=== PATIENT | male | born 1990 | race Caucasian/White ===

== ENCOUNTER 2020-07-15 19:51 | Emergency (ER) | payer BC, MEDICAID ==
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
[2020-07-16 01:16] VITALS: BP 137/82
[2020-07-16] MEDS ORDERED: oxyCODONE 5 MG TABLET PO STA (01:24)
--- NOTE | 2020-07-16 09:44 | XRAY Report ---
PROCEDURE: Elbow 3 View LT INDICATIONS: injury, pain, tenderness TECHNIQUE: 3 views of the elbow were acquired. COMPARISON: None FINDINGS: Bones: There is a nondisplaced proximal radial head fracture. No suspicious bony lesions. Soft tissues: Mild elbow joint effusion. No suspicious soft tissue calcifications. IMPRESSION: Nondisplaced proximal radial head fracture. The above findings are concordant with preliminary report. Reviewed by: Sepideh Casillas MD on 07/16/2020 9:43 AM [facility] Approved by: Sepideh Casillas MD on 07/16/2020 9:43 AM PST Station ID: [id number]
== END 2020-07-16 01:38 | disposition home or self-care (01) ==
LOC: ED 19:51
DX: S52.125A Nondisplaced fracture of head of left radius, initial encounter for closed fracture (principal); W18.30XA Fall on same level, unspecified, initial encounter; Y93.51 Activity, roller skating (inline) and skateboarding; Y92.410 Unspecified street and highway as the place of occurrence of the external cause
CPT/HCPCS: 29105; 73080; 99283; A9270

== ENCOUNTER 2020-07-31 18:06 | Outpatient (CLI) | payer MEDICAID ==
--- NOTE | 2020-07-31 17:10 | XRAY Report ---
PROCEDURE: Elbow 3 View LT INDICATIONS: NONDISPLACED FX OF HEAD OF LEFT RADIUS TECHNIQUE: 3 views of the elbow were acquired. COMPARISON: 07/16/2020. FINDINGS: Bones: Nondisplaced radial head fracture is less conspicuous compared to prior examination compatible with some healing. Radial head fracture is healing in anatomic alignment. Soft tissues: No elbow joint effusion. No suspicious soft tissue calcifications. IMPRESSION: Healing radial head fracture. Reviewed by: Laina Lucas MD, PhD on 07/31/2020 5:09 PM PST Approved by: Laina Lucas MD, PhD on 07/31/2020 5:09 PM PST Station ID: [id number]
== END 2020-07-31 23:59 | disposition home or self-care (01) ==
LOC: DI.N 18:06
PROVIDERS: ATTEND Physician Assistant
DX: S52.125A Nondisplaced fracture of head of left radius, initial encounter for closed fracture (principal)

== ENCOUNTER 2020-08-27 10:30 | Outpatient (CLI) | payer MEDICAID ==
[2020-08-27 11:18] VITALS: BP 107/69
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
== END 2020-08-27 10:31 | disposition home or self-care (01) ==
LOC: SC 10:30
PROVIDERS: ATTEND Nurse Practitioner Family
DX: G47.10 Hypersomnia, unspecified (principal); G47.8 Other sleep disorders; R41.89 Other symptoms and signs involving cognitive functions and awareness; F17.210 Nicotine dependence, cigarettes, uncomplicated; R06.83 Snoring; E66.9 Obesity, unspecified; Z68.39 Body mass index [BMI] 39.0-39.9, adult
CPT/HCPCS: 99203; 99212

== ENCOUNTER 2020-10-19 13:32 | Outpatient (CLI) | payer MEDICAID | END 2020-10-19 13:33 | disposition home or self-care (01) | LOC: SC 13:32 | PROVIDERS: ATTEND Nurse Practitioner Family | DX: R09.02 Hypoxemia (principal); G47.10 Hypersomnia, unspecified; R53.83 Other fatigue; G47.8 Other sleep disorders; R06.83 Snoring; E66.9 Obesity, unspecified; Z68.39 Body mass index [BMI] 39.0-39.9, adult | CPT/HCPCS: 95806 ==

== ENCOUNTER 2020-10-27 16:52 | Outpatient (CLI) | payer MEDICAID ==
--- NOTE | 2020-10-27 17:15 | SLEEP CARE CONSULTATION ---
Information from patient questionnaire entered by Manuel Fernando. I have reviewed and concur with the information entered by Manuel Fernando. This document represents the service I personally performed and the decisions made by , Aniyah Olivo ARNP. History of Present Illness Service Date and Time: 10/27/20201651 Initial [place] Sleepiness Scale score: 10 (in 2020) Current [place] Sleepiness Scale score: 14 Additional HPI information: ALLI ROCHA returns for follow up and results of the recently performed home sleep study. The patient was informed of the following findings: no significant sleep disordered breathing with an average AHI of 3.1, bobbi oxygen saturation of 88% and supine AHI minimally elevated at 5.1. I explained the pathophysiology behind obstructive sleep apnea. Patient does not have sleep apnea and was advised how weight gain could increase the risk of developing sleep apnea in the future. I strongly encouraged the patient to lose weight. Patient does not have significant sleep disordered breathing but has elevated AHI in supine position so advised positional therapy. Methods to achieve positional management therapy were discussed; such as, positioning with pillows. Patient has moderate snoring. Snoring can be reduced by weight loss. Weight loss is best achieved with diet consult. Patient instructed to contact PCP for referral. Snoring can also be treated with an oral appliance from a dentist. Advised to check insurance coverage. In addition, an ENT evaluation can be do to see if other treatment is indicated. Patient counseled not drink alcohol less than 4 hours before bedtime as it can increase snoring and apnea. Patient was cautioned about risks of drowsy driving until sleepiness symptoms resolve. Sleep Study - Results Type of Sleep Study: Home sleep study Prior sleep studies: No Polysomnography/Home Sleep Study results: Physician Impression: The quality of the study is good. The length of the study is adequate (> 240 minutes). Please also see the tabulated and graphic data. 1. No significant sleep disordered breathing, with an AHI of 3.1/hr and bobbi SaO2 of 88%. During the study, the patient had 10 apneas (10 obstructive, 0 central, 0 mixed) and 11 hypopneas. The longest episode lasted 46.0 seconds. The few respiratory events occurred almost exclusively during supine sleep (supine AHI was 5.1 and non-supine, 2.15). 2. Hypoxemia (ICD-10 R09.02), minimal, with the lowest oxygen saturation of 88 % and 1.0 minutes with SaO2 under 90%. Baseline oxygen saturation was normal (Average oxygen saturation was 93%). Allergies and Home Medications Home medication list reviewed: Yes (no new meds) Review of Systems Review of systems same as previous: Yes (no changes) Physical Exam Heart Rate: 107 O2 Saturation: 97 Height: 5 ft 8 in Weight: 252 lb Body Mass Index: 38.2 BMI Classification: Obese Impression and Plan Snoring but no significant sleep disordered breathing. Patient advised that often weight loss will reduce snoring as well as apnea risk. An oral appliance can also be used for snoring. This would require a dental consultation. Patient cautioned not to use other online appliances as can cause bite issues. A list of accredited dentists in [facility] and one local dentist who makes oral appliances is available in office. Patient is advised to check if insurance will cover. An ENT consult can also be helpful to determine if any other treatment is an option. * Attempt to lose weight * Avoid alcohol consumption near bedtime * The patient is cautioned about driving until sleepiness is completely resolved. * Return as needed for follow up. Counseling Topics: Sleeping position, Weight loss health impact Visit Type: In Office Time Spent with Patient (minutes): 13 Provider Statement: I spent 100% of the Face to Face Visit with the patient with greater than 50% spent counseling the patient and coordination of care.
== END 2020-10-27 16:53 | disposition home or self-care (01) ==
LOC: SC 16:52
PROVIDERS: ATTEND Nurse Practitioner Family
DX: R06.83 Snoring (principal); E66.9 Obesity, unspecified; Z68.38 Body mass index [BMI] 38.0-38.9, adult
CPT/HCPCS: 99212

== ENCOUNTER 2021-11-17 07:57 | Outpatient (CLI) | payer MEDICAID ==
--- NOTE | 2021-11-17 10:46 | Ultrasound Report ---
PROCEDURE: Abdomen Complete INDICATIONS: ABD PAIN TECHNIQUE: Real-time scanning was performed of the abdominal and retroperitoneal organs, with image documentatio n. COMPARISON: None. FINDINGS: Liver: Liver is normal in size and homogeneous in echotexture. Liver is echogenic. Gallbladder: Gallbladder is sonographically normal. No gallstones. Gallbladder wall measures 1.5 mm. No pericholecystic fluid. Biliary ducts: Intrahepatic bile ducts are non-dilated. Extrahepatic bile duct caliber measures 2.7 mm. Normal is 6-7 mm or less in diameter, or 10 mm or less post-cholecystectomy. Pancreas: Visualized portions of the pancreas are sonographically normal. Bony detail the pancreas a re obscured by bowel gas and cannot be evaluated. Spleen: Spleen is normal in size and homogeneous in echotexture. Kidneys: Kidneys are normal in size and echotexture. Right kidney measures 11.6 cm long; left kidne y measures 12.2 cm long. No hydronephrosis or nephrolithiasis. No solid masses. Aorta: Visualized aorta is normal in caliber at less than 3 cm. Iliacs: Obscured by bowel gas and cannot be evaluated. IVC: Intrahepatic inferior vena cava is patent. Miscellaneous: No free abdominal fluid. IMPRESSION: No sonographic evidence of cholelithiasis or cholecystitis. Echogenic liver. Finding typically represents fatty infiltration, however finding is nonspecific and other etiologies including hepatic cirrhosis can produce a similar appearance. Recommend correlation with clinical and laboratory data. Reviewed by: Laina Lucas MD, PhD on 11/17/2021 10:44 AM PDT Approved by: Laina Lucas MD, PhD on 11/17/2021 10:44 AM PDT Station ID: [id number]
== END 2021-11-17 07:58 | disposition home or self-care (01) ==
LOC: DI 07:57
PROVIDERS: ATTEND Family Medicine
DX: R10.9 Unspecified abdominal pain (principal); R11.2 Nausea with vomiting, unspecified; R93.2 Abnormal findings on diagnostic imaging of liver and biliary tract

== ENCOUNTER 2021-11-18 09:05 | Day surgery (SDC) | payer MEDICAID ==
--- NOTE | 2021-11-18 09:29 | ED Physician Documentation ---
PD HPI ABD PAIN - Stated complaint Stated Complaint: ABD PX - Chief complaint Chief Complaint: Abd Pain - Additional information Additional information: Patient is 31-year-old male presenting to the emergency department with right lower quadrant abdominal pain. Reports cramping right lower quadrant abdominal pain with associated nausea. States has had intermittent episodes of pain for several months however this morning had a severe episode of pain. Has followed up with primary care and had ultrasonography of his gallbladder which was negative yesterday however there was some steatosis noted with recommendation for correlation with labs. Currently reports that pain is improving. Denies previous abdominal surgeries. Endorses for some nausea and diarrhea at home. Also reports is a daily marijuana user. Review of Systems Ten Systems: 10 systems reviewed and negative GI: reports: Abdominal Pain, Nausea, Vomiting, Diarrhea PD PAST MEDICAL HISTORY - Past Medical History Psych: Depression, Anxiety - Past Surgical History Past Surgical History: No - Present Medications Home Medications: Ambulatory Orders Medication Instructions Recorded Confirmed Sertraline [Zoloft] 100 mg PO DAILY 03/07/13 07/16/20 Albuterol Sulfate [Proair 2 puffs IH Q4HR PRN 07/16/20 07/16/20 Respiclick] Oxycodone HCl 10 mg PO Q6HR PRN #14 tablet 07/16/20 Quetiapine Fumarate [Seroquel] 100 mg PO DAILY 07/16/20 07/16/20 buPROPion HCL [Bupropion HCl Sr] 150 mg PO DAILY 07/16/20 07/16/20 buPROPion HCL [Bupropion Xl] 300 mg PO DAILY 07/16/20 07/16/20 clonazePAM [Clonazepam] 1 mg PO BID 07/16/20 07/16/20 lamoTRIgine [Lamictal] 200 mg PO DAILY 07/16/20 07/16/20 - Allergies Allergies/Adverse Reactions: Allergies Allergy/AdvReac Type Severity Reaction Status Date / Time No Known Drug Allergies Allergy Verified 07/15/20 19:58 - Social History Does the pt smoke?: No Smoking Status: Never smoker Does the pt drink ETOH?: Yes Does the pt have substance abuse?: Yes - POLST Patient has POLST: No PD ED PE NORMAL - Vitals Vital signs reviewed: Yes - General General: Alert and oriented X 3, No acute distress, Other (Patient is obese) - HEENT HEENT: Atraumatic - Neck Neck: Supple, no meningeal sign - Cardiac Cardiac: RRR, No gallop - Respiratory Respiratory: No respiratory distress, Clear bilaterally - Abdomen Abdomen: Normal bowel sounds, Soft, Non distended. No: Non tender (Right lower quadrant tenderness to palpation) - Male Male : Deferred - Rectal Rectal: Deferred - Derm Derm: Normal color - Extremities Extremities: No deformity - Neuro Neuro: Alert and oriented X 3, night shift 2-12 intact, No motor deficit, Normal speech Results - Vitals Vitals: Vital Signs - 24 hr 11/18/21 11/18/21 11/18/21 09:08 11:27 13:59 Temperature 36.9 C Heart Rate 84 92 85 Respiratory 18 18 22 Rate Blood Pressure 144/88 H 128/85 H 138/77 H O2 Saturation 97 98 98 11/18/21 11/18/21 15:02 15:20 Temperature Heart Rate 92 95 Respiratory 19 20 Rate Blood Pressure 138/88 H O2 Saturation 96 98 Oxygen O2 Source Room air - Labs Labs: Laboratory Tests 11/18/21 11/18/21 11/18/21 09:20 09:23 09:23 WBC 18.8 H RBC 5.12 Hgb 15.6 Hct 45.9 MCV 89.6 MCH 30.5 MCHC 34.0 RDW 13.7 Plt Count 334 MPV 9.6 Neut # (Auto) 16.0 H Lymph # (Auto) 1.2 L [place] # (Auto) 1.5 H Eos # (Auto) 0.0 Baso # (Auto) 0.1 Absolute Nucleated RBC 0.00 Nucleated RBC % 0.0 Sodium 136 Potassium 3.9 Chloride 101 Carbon Dioxide 24 Anion Gap 11.0 BUN 13 Creatinine 0.9 Estimated GFR (MDRD) 97 Glucose 155 H Calcium 9.4 Total Bilirubin 0.4 AST 30 ALT 40 Alkaline Phosphatase 62 Total Protein 8.2 Albumin 4.7 Globulin 3.5 Albumin/Globulin Ratio 1.3 Lipase 31 Urine Color YELLOW Urine Clarity CLOUDY Urine pH 8.0 H Ur Specific [place] 1.015 Urine Protein NEGATIVE Urine Glucose (UA) NEGATIVE Urine Ketones NEGATIVE Urine Occult Blood NEGATIVE Urine Nitrite NEGATIVE Urine Bilirubin NEGATIVE Urine Urobilinogen 0.2 (NORMAL) Ur Leukocyte Esterase NEGATIVE Urine RBC 0-5 Urine WBC 0-3 Ur Squamous Epith Cells NONE SEEN Amorphous Sediment Moderate Urine Bacteria Few Ur Microscopic Review INDICATED Urine Culture Comments NOT INDICATED SARS-CoV-2 (PCR) 11/18/21 16:50 WBC RBC Hgb Hct MCV MCH MCHC RDW Plt Count MPV Neut # (Auto) Lymph # (Auto) [place] # (Auto) Eos # (Auto) Baso # (Auto) Absolute Nucleated RBC Nucleated RBC % Sodium Potassium Chloride Carbon Dioxide Anion Gap BUN Creatinine Estimated GFR (MDRD) Glucose Calcium Total Bilirubin AST ALT Alkaline Phosphatase Total Protein Albumin Globulin Albumin/Globulin Ratio Lipase Urine Color Urine Clarity Urine pH Ur Specific [place] Urine Protein Urine Glucose (UA) Urine Ketones Urine Occult Blood Urine Nitrite Urine Bilirubin Urine Urobilinogen Ur Leukocyte Esterase Urine RBC Urine WBC Ur Squamous Epith Cells Amorphous Sediment Urine Bacteria Ur Microscopic Review Urine Culture Comments SARS-CoV-2 (PCR) NOT DETECTED PD MEDICAL DECISION MAKING - ED course Complexity details: reviewed results, re-evaluated patient, d/w patient, d/w family ED course: Patient is 31-year-old male presenting to the emergency department with right lower quadrant abdominal pain. Reported intermittent episodes of pain ongoing for the last few months. Did have some focal tenderness but no guarding, rebound, rigidity on exam. Was otherwise afebrile and hemodynamically stable on arrival to the emergency department. Labs obtained demonstrated a significant leukocytosis with white blood cell count 8.[address] of the abdomen pelvis showed signs of early appendicitis. Patient's presentation is somewhat atypical for acute appendicitis however I did order for Zosyn here in the emergency department. His case was discussed with the surgical service here at [facility] who reported that they would be able to accept the patient however it is unlikely that they will be able to surgically intervene until tomorrow eveniAdditionally the option of discharge from the emergency department on oral antibiotics and careful follow-up either returning to the hospital or following up on outpatient clinic was discussed. I did discuss these options with the patient who expressed significant concern about the amount of pain he has been having. Additionally on his behalf we reached out to [facility] and I spoke with her surgical service as well as with their emergency department. Initially they did accept the patientAnd patient was amenable to transfer however shortly before patient left our facility we were contacted by [facility] and informed that they would not have a surgical suite available until tomorrow evening. Given this patient elected to stay here at [facility]. He wasVery graciously admitted to the surgical service for further evaluation and treatment. Final clinical impression: Acute appendicitis. Departure - Departure Disposition: ED Place in Observation Clinical Impression: Appendicitis
[2021-11-18 09:34] LABS: BASOPHILS # (AUTO) 0.1 10^3/uL (0.0-0.1); BASOPHILS % (AUTO) 0.3 %; EOSINOPHILS % (AUTO) 0.2 %; HCT - HEMATOCRIT 45.9 % (42.0-52.0); HGB - HEMOGLOBIN 15.6 g/dL (14.0-18.0); LYMPHOCYTES # (AUTO) 1.2 10^3/uL (1.5-3.5); LYMPHOCYTES % (AUTO) 6.3 %; MEAN CORPUSCULAR HEMOGLOBIN 30.5 pg (27.0-31.0); MEAN CORPUSCULAR VOLUME 89.6 fL (80.0-94.0); MEAN PLATELET VOLUME 9.6 fL (7.4-11.4); MONOCYTES # (AUTO) 1.5 10^3/uL (0.0-1.0); MONOCYTES % (AUTO) 7.8 %; NEUTROPHILS % (AUTO) 84.9 %; PLT - PLATELET COUNT 334 10^3/uL (130-450); RED BLOOD COUNT 5.12 10^6/uL (4.70-6.10); RED CELL DISTRIBUTION WIDTH 13.7 % (12.0-15.0); WHITE BLOOD COUNT 18.8 x10^3/uL (4.8-10.8)
[2021-11-18 09:36] LABS: BILIRUBIN,URINE NEGATIVE (NEGATIVE); GLUCOSE, URINE (UA) NEGATIVE (NEGATIVE); KETONES,URINE (UA) NEGATIVE (NEGATIVE); LEUKOCYTE ESTERASE, URINE NEGATIVE (NEGATIVE); NITRITE,URINE NEGATIVE (NEGATIVE); OCCULT BLOOD,URINE NEGATIVE (NEGATIVE); PROTEIN,URINE NEGATIVE (NEGATIVE); UROBILINOGEN,URINE 0.2 (NORMAL) E.U./dL (NORMAL)
[2021-11-18 09:37] LABS: CLARITY,URINE CLOUDY (CLEAR)
[2021-11-18] MEDS ORDERED: MORPHINE 2 MG/ML CARPUJECT IVP STA (09:39)
[2021-11-18] MEDS ORDERED: SODIUM CHLORIDE 0.9% 1,000 ML IV STA (09:39)
[2021-11-18] MEDS ORDERED: ONDANSETRON 4 MG/2 ML VIAL IVP STA (09:39)
[2021-11-18 09:47] LABS: AMORPHOUS SEDIMENT,UR Moderate /LPF; BACTERIA,URINE Few /HPF (None Seen); RBC,URINE 0-5 /HPF (0-5); SQUAMOUS EPITHELIAL CELL,UR NONE SEEN (<= Few); WBC,URINE 0-3 /HPF (0-3)
[2021-11-18 09:52] LABS: ALBUMIN 4.7 g/dL (3.2-5.5); ALBUMIN/GLOBULIN RATIO 1.3 (1.0-2.2); BILIRUBIN,TOTAL 0.4 mg/dL (0.2-1.0); CALCIUM 9.4 mg/dL (8.5-10.3); CREATININE 0.9 mg/dL (0.6-1.2); POTASSIUM 3.9 mmol/L (3.5-5.0); TOTAL PROTEIN 8.2 g/dL (6.7-8.2)
[2021-11-18] MEDS ORDERED: IOVERSOL 320 100 ML VIAL IVP ONE ×2 (10:27→14:51)
--- NOTE | 2021-11-18 13:22 | CT Report ---
PROCEDURE: Abdomen/Pelvis W INDICATIONS: RLQ abd pain CONTRAST: IV CONTRAST: Optiray 320 ml: 100 PO CONTRAST: *NO PO CONTRAST TECHNIQUE: After the administration of intravenous contrast, 5 mm thick sections acquired from the diaphragms to the symphysis. 5 mm thick coronal and sagittal reformats were acquired. For radiation dose reducti on, the following was used: automated exposure control, adjustment of mA and/or kV according to lynnette ent size. COMPARISON: Abdomen ultrasound 11/17/2021 FINDINGS: Image quality: Excellent. ABDOMEN: Lung bases: Lung bases are clear. Heart size is normal. Solid organs: Liver and spleen are normal in size and enhancement. Gallbladder is unremarkable Mario iary system is non dilated. Pancreas enhances normally. No adrenal nodules. Kidneys demonstrate no rmal size and enhancement, without hydronephrosis. Peritoneum and bowel: Bowel loops are nonobstructive. The appendix is at the upper limits of normal in size. No appendicolith. There is a very minimal appearance of periappendiceal stranding. In additi on, an adjacent 4 mm lymph node is present. No free fluid or free air. Scattered colonic diverticula are present, minimal without inflammatory change. Nodes and vessels: No retroperitoneal or mesenteric adenopathy by size criteria. Aorta and inferior vena cava are normal in size. Miscellaneous: No ventral hernias. PELVIS: Genitourinary: Bladder wall thickness is normal. Miscellaneous: Fat-containing inguinal hernias are present. Bones: No suspicious bony lesions. No vertebral body compression fractures. IMPRESSION: Appendix is at the upper limits of normal in size with very minimal periappendiceal inflammatory azul ge as well as subcentimeter adjacent lymph node. Findings are concerning for early appendicitis, with out evidence of appendicolith, free fluid or free air. While the adjacent subcentimeter lymph node co uld be reactive in nature, it is noted that exclusion of appendiceal mass secondary to malignancy elsa uld be excluded with interval imaging follow-up or surgical excision as clinically appropriate. Diverticulosis. Reviewed by: Sepideh Casillas MD on 11/18/2021 1:21 PM PDT Approved by: Sepideh Casillas MD on 11/18/2021 1:21 PM PDT Station ID: [id number]
[2021-11-18] MEDS ORDERED: PIPERACILLIN/TAZOBACTAM 4.5 GM in SODIUM CHLORIDE 0.9% MINIBAG 100 ML IV STA (13:28)
[2021-11-18] MEDS ORDERED: HYDROmorphone 1 MG/ML CARPUJECT IVP STA (16:03)
[2021-11-18] MEDS ORDERED: ACETAMINOPHEN 325 MG TABLET PO PRN (17:49)
[2021-11-18] MEDS ORDERED: SODIUM CHLORIDE FLUSH 0.9% 10 ML SYRINGE IVP PRN (17:49)
[2021-11-18] MEDS ORDERED: oxyCODONE 5 MG TABLET PO PRN (17:49)
[2021-11-18] MEDS ORDERED: ZOLPIDEM 5 MG TABLET PO PRN (17:49)
[2021-11-18] MEDS ORDERED: ONDANSETRON ODT 4 MG TABLET TL PRN (17:49)
[2021-11-18] MEDS ORDERED: ONDANSETRON 4 MG/2 ML VIAL IVP PRN (17:49)
[2021-11-18] MEDS: D5.45NS W/20 MEQ KCL 1,000 ML IV SCH (19:09)
[2021-11-18] MEDS ORDERED: PIPERACILLIN/TAZOBACTAM 3.375 GM in SODIUM CHLORIDE 0.9% MINIBAG 100 ML IV ONE (20:00)
[2021-11-18] MEDS: clonazePAM 0.5 MG TABLET PO SCH (20:58)
[2021-11-18] MEDS: HYDROmorphone 0.5 MG/0.5 ML SYRINGE IVP PRN (22:12)
[2021-11-18] MEDS: PIPERACILLIN/TAZOBACTAM 3.375 GM in SODIUM CHLORIDE 0.9% MINIBAG 100 ML IV SCH (23:59)
[2021-11-19] MEDS: SODIUM CHLORIDE FLUSH 0.9% 10 ML SYRINGE IVP SCH ×4 (00:07→22:22)
[2021-11-19] MEDS: HYDROmorphone 0.5 MG/0.5 ML SYRINGE IVP PRN ×2 (00:07→19:36)
[2021-11-19] MEDS: D5.45NS W/20 MEQ KCL 1,000 ML IV SCH ×3 (03:29→17:53)
[2021-11-19] MEDS: clonazePAM 0.5 MG TABLET PO SCH ×2 (08:17→22:09)
[2021-11-19] MEDS: PIPERACILLIN/TAZOBACTAM 3.375 GM in SODIUM CHLORIDE 0.9% MINIBAG 100 ML IV SCH ×3 (08:18→22:22)
[2021-11-19] MEDS ORDERED: lamoTRIgine 100 MG TABLET PO SCH (09:00)
[2021-11-19] MEDS ORDERED: buPROPion XL 150 MG TABLET PO SCH (09:00)
[2021-11-19] MEDS ORDERED: BUPIVACAINE 0.25% PF 10 ML VIAL ONE (11:16)
--- NOTE | 2021-11-19 13:25 | ANESTHESIA ---
Pre-Anesthesia VS, & Labs - Diagnosis appendicitis - Procedure lap appy Vital Signs: Temp Pulse Resp BP Pulse Ox 36.5 C 82 18 114/54 L 99 11/19/21 08:12 11/19/21 08:12 11/19/21 08:12 11/19/21 08:12 11/19/21 08:12 Height: 5 ft 8 in Weight (kg): 113.398 kg Body Mass Index: 38.0 BMI Classification: Obese - NPO Other (H2O at 0900, no food since 11/17) - Lab Results Current Lab Results: Laboratory Tests 11/18/21 09:23: Sodium 136, Potassium 3.9, Chloride 101, Carbon Dioxide 24, Anion Gap 11.0, BUN 13, Creatinine 0.9, Estimated GFR (MDRD) 97, Glucose 155 H, Calcium 9.4, Total Bilirubin 0.4, AST 30, ALT 40, Alkaline Phosphatase 62, Total Protein 8.2, Albumin 4.7, Globulin 3.5, Albumin/Globulin Ratio 1.3, Lipase 31 11/18/21 09:23: WBC 18.8 H, RBC 5.12, Hgb 15.6, Hct 45.9, MCV 89.6, MCH 30.5, MCHC 34.0, RDW 13.7, Plt Count 334, MPV 9.6, Neut # (Auto) 16.0 H, Lymph # (Auto) 1.2 L, Story # (Auto) 1.5 H, Eos # (Auto) 0.0, Baso # (Auto) 0.1, Absolute Nucleated RBC 0.00, Nucleated RBC % 0.0 Fish Bones: 11/18/21 09:23 11/18/21 09:23 Home Medications and Allergies Active Medications Acetaminophen (Acetaminophen 325 Mg Tablet) 650 mg PO Q4HR PRN PRN Reason: Pain 1 to 4, or Fever Last Admin: 11/19/21 08:18 Dose: 650 mg Bupropion HCl (Bupropion Xl 150 Mg Tablet) 300 mg PO DAILY [facility] [place] Last Admin: 11/19/21 08:17 Dose: 300 mg Clonazepam (Clonazepam 0.5 Mg Tablet) 1 mg PO BID NOEL Last Admin: 11/19/21 08:17 Dose: 1 mg Hydromorphone HCl (Hydromorphone 0.5 Mg/0.5 Ml Syringe) 0.5 mg IVP Q2H PRN PRN Reason: Pain 8 to 10 Last Admin: 11/19/21 00:07 Dose: 0.5 mg Potassium Chloride/Dextrose/Sod Cl (D5.45ns W/20 Meq Kcl) 1,000 mls @ 125 mls/hr IV .Q8H [facility] [place] Last Admin: 11/19/21 11:29 Dose: 125 mls/hr Piperacillin Sod/Tazobactam (Sod 3.375 gm/ Sodium Chloride) 100 mls @ 25 mls/hr IV Q8H [facility] [place] Last Infusion: 11/19/21 13:22 Dose: Infused Lamotrigine (Lamotrigine 100 Mg Tablet) 200 mg PO DAILY [facility] [place] Last Admin: 11/19/21 08:19 Dose: Not Given Ondansetron HCl (Ondansetron Odt 4 Mg Tablet) 4 mg TL Q6HR PRN PRN Reason: Nausea / Vomiting Ondansetron HCl (Ondansetron 4 Mg/2 Ml Vial) 4 mg IVP Q6HR PRN PRN Reason: Nausea / Vomiting Oxycodone HCl (Oxycodone 5 Mg Tablet) 5 mg PO Q4HR PRN PRN Reason: Pain 5 to 7 Last Admin: 11/19/21 11:31 Dose: 5 mg Sodium Chloride (Sodium Chloride Flush 0.9% 10 Ml Syringe) 10 ml IVP PRN PRN PRN Reason: NEEDED PER PROVIDER ORDERS Sodium Chloride (Sodium Chloride Flush 0.9% 10 Ml Syringe) 10 ml IVP 0100,0900,1700 [facility] [place] Last Admin: 11/19/21 00:07 Dose: 10 ml Zolpidem Tartrate (Zolpidem 5 Mg Tablet) 5 mg PO QPM PRN PRN Reason: Insomnia Last Admin: 11/18/21 22:12 Dose: 5 mg Sertraline [Zoloft] 100 mg PO DAILY 03/07/13 Albuterol Sulfate [Proair Respiclick] 2 puffs IH Q4HR PRN 07/16/20 Quetiapine Fumarate [Seroquel] 100 mg PO DAILY 07/16/20 buPROPion HCL [Bupropion HCl Sr] 150 mg PO DAILY 07/16/20 buPROPion HCL [Bupropion Xl] 300 mg PO DAILY 07/16/20 clonazePAM [Clonazepam] 1 mg PO BID 07/16/20 lamoTRIgine [Lamictal] 200 mg PO DAILY 07/16/20 Allergies/Adverse Reactions: Allergies Allergy/AdvReac Type Severity Reaction Status Date / Time No Known Drug Allergies Allergy Verified 07/15/20 19:58 Anes History & Medical History - Anesthetic History Anesthesia Complications: reports: No previous complications Family history of Anesthesia Complications: Denies Family history of Malignant Hyperthermia: Denies - Medical History Cardiovascular: reports: None Pulmonary: reports: Asthma, Other (expiratory wheezing throughout. pt is a heavy marijuana smoker) Gastrointestinal: reports: None Urinary: reports: None Neuro: reports: None Musculoskeletal: reports: None Endocrine/Autoimmune: reports: None Blood Disorders: reports: None Skin: reports: None Smoking Status: Current every day smoker Psychosocial: reports: Depression, Anxiety, Alcohol, Anxiolytic, Cannabis, Other (Bipolar.) History of Cancer?: No - Surgical History Eyes Ears Nose Throat (EENT): reports: Myringotomy (tubes) Exam General: Alert, Oriented x3, Cooperative Dental: Poor dentition, Other (poor dentition throughout) Mouth Openin Fingerbreadth Neck Mobility: Normal Mallampati classification: III Thyromental Distance: 4-6 cm Respiratory: Wheezing, Expiration Cardiovascular: Regular rate Plan Anesthesia Type: General Consent for Procedure(s) Verified and Reviewed: Yes Code Status: Attempt Resuscitation ASA classification: 2-Mild systemic disease Is this case an emergency?: No
[2021-11-19] MEDS ORDERED: ATROPINE ABBOJECT 1 MG/10 ML SYRINGE IVP PRN (13:28)
[2021-11-19] MEDS ORDERED: HYDROmorphone 0.5 MG/0.5 ML SYRINGE IVP PRN (13:28)
[2021-11-19] MEDS ORDERED: ONDANSETRON 4 MG/2 ML VIAL IVP PRN ×2 (13:28→15:56)
[2021-11-19] MEDS ORDERED: NALOXONE 0.4 MG/ML VIAL IVP PRN (13:28)
[2021-11-19] MEDS ORDERED: MORPHINE 2 MG/ML CARPUJECT IVP PRN (13:28)
[2021-11-19] MEDS ORDERED: ePHEDrine 50 MG/ML VIAL IVP PRN (13:28)
[2021-11-19] MEDS ORDERED: ROCURONIUM 50 MG/5 ML VIAL ONE ×2 (13:48→14:58)
[2021-11-19] MEDS ORDERED: PROPOFOL 200 MG/20 ML VIAL IVP ONE (13:48)
[2021-11-19] MEDS ORDERED: DEXAMETHASONE 4 MG/ML VIAL ONE (13:48)
[2021-11-19] MEDS ORDERED: SUGAMMADEX 200 MG/2 ML VIAL IVP ONE (13:48)
[2021-11-19] MEDS ORDERED: LIDOCAINE-MPF 2% 5 ML VIAL ONE (13:48)
[2021-11-19] MEDS ORDERED: SODIUM CHLORIDE 0.9% 10 ML VIAL IVP ONE (13:49)
[2021-11-19] MEDS ORDERED: fentaNYL 100 MCG/2 ML VIAL ONE ×2 (13:49→16:29)
[2021-11-19] MEDS ORDERED: KETAMINE 500 MG/10 ML VIAL ONE (13:49)
[2021-11-19] MEDS ORDERED: MIDAZOLAM 2 MG/2 ML VIAL ONE (13:49)
[2021-11-19] MEDS ORDERED: LACTATED RINGERS 1,000 ML IV SCH (14:00)
[2021-11-19] MEDS ORDERED: BUPIVACAINE 0.25% PF 30 ML VIAL SUBQ ONE (14:28)
[2021-11-19] MEDS ORDERED: KETOROLAC 30 MG/ML VIAL ONE (14:43)
[2021-11-19] MEDS ORDERED: HYDROmorphone 1 MG/ML CARPUJECT ONE (14:51)
[2021-11-19] MEDS ORDERED: LACTATED RINGERS 1,000 ML IV ONE ×2 (15:47→16:15)
--- NOTE | 2021-11-19 16:07 | OPERATIVE REPORT ---
Operative Report - General Procedure Date: 11/19/21 Planned Procedure: laparoscopic appendectomy Pre-Op Diagnosis: appendicitis Procedure Performed: laparoscopic appendectomy Post Op Diagnosis: appendicitis - Procedure Note Primary Surgeon: barby donaldson Anesthesia Technique: General ET tube, Local Pathology: appendix Estimated Blood Loss (mL): 5 Drain/Tube Type: Other (none) Indications: appendicitis Findings: suppurative. broke in bag when extracting from the abdomen Complications: none - Other Other Information/Narrative: The patient was properly identified brought to the operating room and placed in supine position. The patient was previously given antibiotics. Sequential compression devices were placed. General endotracheal anesthesia was induced. The patient was prepped and draped in a sterile fashion. Local anesthetic was given to incision areas. An infraumbilical incision was made in and proceeded down to the fascia. The fascia was incised lifted upwards and abdomen entered with a Veress needle. CO2 was insufflated to a pressure of 15. A 12 mm trocar was placed with 30 degree scope. There was no evidence of injury from Veress needle or trocar placement. Under direct vision a 5 mm trocar was placed suprapubic and a 5 mm trocar was placed in the right upper quadrant. Appendix was identified and retracted anteriorly. Peritoneal attachments were taken down with careful use of cautery. Appendix was mobilized more anterior. A plane was then created between the mesoappendix and the appendix at the cecum. Appendix was divided with an Endo GABI intestinal load to include up a small portion of the cecum. The mesoappendix was then divided with an Endo GABI vascular load. There was secure closure at the cecum and hemostasis was assured. The appendix was brought out. The abdomen was thoroughly irrigated and hemostasis again assured. Trochars were removed under direct vision. Fascia at the infraumbilical site was closed with a running 0 Vicryl suture. Subcutaneous tissue was irrigated and skin reapproximated with buried interrupted 4-0 Monocryl. Dressings were applied. The patient tolerated the procedure well was awakened and brought to recovery in good condition.
[2021-11-19] MEDS: fentaNYL 100 MCG/2 ML VIAL IVP PRN ×2 (16:21→16:29)
[2021-11-19] MEDS ORDERED: PIPERACILLIN/TAZOBACTAM 3.375 GM in SODIUM CHLORIDE 0.9% MINIBAG 100 ML IV SCH (17:00)
--- NOTE | 2021-11-19 17:22 | ANESTHESIA POST OP EVALUATION ---
Anesthesia Post Eval - Post Anesthesia Eval Vitals: Last Vital Signs Temp 36.9 C 11/19/21 16:31 Pulse 78 11/19/21 16:31 Resp 12 11/19/21 16:31 BP 142/91 H 11/19/21 16:31 Pulse Ox 97 11/19/21 16:31 CV Function Including HR & BP: Stable Pain Control: Satisfactory Nausea & Vomiting: Negative Mental Status: Baseline Respiratory Status: Airway Patent Hydration Status: Satisfactory Anesthesia Complications: None
[2021-11-19] MEDS: oxyCODONE 5 MG TABLET PO PRN ×2 (17:49→22:09)
[2021-11-19] MEDS ORDERED: PIPERACILLIN/TAZOBACTAM 3.375 GM in SODIUM CHLORIDE 0.9% MINIBAG 100 ML IV ONE (18:00)
[2021-11-20] MEDS: HYDROmorphone 0.5 MG/0.5 ML SYRINGE IVP PRN (00:30)
[2021-11-20] MEDS: D5.45NS W/20 MEQ KCL 1,000 ML IV SCH (01:53)
[2021-11-20] MEDS: oxyCODONE 5 MG TABLET PO PRN ×2 (05:43→09:09)
[2021-11-20] MEDS: PIPERACILLIN/TAZOBACTAM 3.375 GM in SODIUM CHLORIDE 0.9% MINIBAG 100 ML IV SCH (05:43)
[2021-11-20 08:56] VITALS: BP 132/79
== END 2021-11-20 10:15 | disposition home or self-care (01) ==
LOC: ED 09:05 → SDS 17:49 → MS2 17:49 → SDS 11-20 10:15
PROVIDERS: ATTEND Surgery
PROC: 0DTJ4ZZ Resection of Appendix, Percutaneous Endoscopic Approach (ICD-10-PCS; principal; 2021-11-18)
DX: K35.80 Unspecified acute appendicitis (principal); Z20.822 Contact with and (suspected) exposure to COVID-19; E66.9 Obesity, unspecified; Z68.38 Body mass index [BMI] 38.0-38.9, adult; F17.200 Nicotine dependence, unspecified, uncomplicated; J45.909 Unspecified asthma, uncomplicated
CPT/HCPCS: 36415; 44970; 74177; 80053; 81001; 83690; 85025; 87635; 96365; 96366; 96375; 99281; 99285; A9270; J1170; J7120; Q9967; 81003; 87086

== ENCOUNTER 2022-07-19 09:36 | Outpatient (CLI) | payer MEDICAID ==
[2022-07-19 15:13] LABS: BASOPHILS % (AUTO) 0.5 %; EOSINOPHILS # (AUTO) 0.2 10^3/uL (0.0-0.7); EOSINOPHILS % (AUTO) 2.1 %; HCT - HEMATOCRIT 45.3 % (42.0-52.0); HGB - HEMOGLOBIN 14.6 g/dL (14.0-18.0); LYMPHOCYTES # (AUTO) 2.3 10^3/uL (1.5-3.5); LYMPHOCYTES % (AUTO) 26.2 %; MEAN CORPUSCULAR HEMOGLOBIN 29.7 pg (27.0-31.0); MEAN CORPUSCULAR HGB CONC 32.2 g/dL (32.0-36.0); MEAN CORPUSCULAR VOLUME 92.1 fL (80.0-94.0); MEAN PLATELET VOLUME 9.9 fL (7.4-11.4); MONOCYTES # (AUTO) 1.3 10^3/uL (0.0-1.0); MONOCYTES % (AUTO) 14.7 %; NEUTROPHILS # (AUTO) 4.9 10^3/uL (1.5-6.6); PLT - PLATELET COUNT 284 10^3/uL (130-450); RED BLOOD COUNT 4.92 10^6/uL (4.70-6.10); RED CELL DISTRIBUTION WIDTH 13.8 % (12.0-15.0); WHITE BLOOD COUNT 8.8 x10^3/uL (4.8-10.8)
[2022-07-19 15:24] LABS: BILIRUBIN,URINE NEGATIVE (NEGATIVE); GLUCOSE, URINE (UA) NEGATIVE (NEGATIVE); KETONES,URINE (UA) NEGATIVE (NEGATIVE); LEUKOCYTE ESTERASE, URINE NEGATIVE (NEGATIVE); NITRITE,URINE NEGATIVE (NEGATIVE); OCCULT BLOOD,URINE NEGATIVE (NEGATIVE); PROTEIN,URINE NEGATIVE (NEGATIVE); UROBILINOGEN,URINE 0.2 (NORMAL) E.U./dL (NORMAL)
[2022-07-19 15:35] LABS: ALBUMIN 4.4 g/dL (3.2-5.5); ALBUMIN/GLOBULIN RATIO 1.4 (1.0-2.2); ALKALINE PHOSPHATASE 42 IU/L (42-121); ALT ALANINE AMINOTRANSFERASE 26 IU/L (10-60); AST ASPARTATE AMINOTRANSFERASE 23 IU/L (10-42); BILIRUBIN,TOTAL 0.6 mg/dL (0.2-1.0); BUN - BLOOD UREA NITROGEN 24 mg/dL (6-20); CALCIUM 9.5 mg/dL (8.5-10.3); CARBON DIOXIDE - CO2 23 mmol/L (21-32); CHLORIDE 103 mmol/L (101-111); CHOL/HDL RATIO 2.9 (<5.0); CHOLESTEROL 125 mg/dL; CREATININE 0.9 mg/dL (0.6-1.2); CRP HIGH SENSITIVITY 4.6 mg/L; GFR - MDRD 97 (>89); GLUCOSE 106 mg/dL (70-100); HDL CHOLESTEROL 43 mg/dL; LDL CHOLESTEROL,CALCULATED 72 mg/dL; LDL/HDL RATIO 1.7 (<3.6); POTASSIUM 4.3 mmol/L (3.5-5.0); SODIUM 134 mmol/L (135-145); TOTAL PROTEIN 7.5 g/dL (6.7-8.2); TRIGLYCERIDES 49 mg/dL; VLDL CHOLESTEROL 10 mg/dL
[2022-07-19 15:38] LABS: BACTERIA,URINE None Seen /HPF (None Seen); CLARITY,URINE CLEAR (CLEAR); RBC,URINE None Seen /HPF (0-5); SQUAMOUS EPITHELIAL CELL,UR RARE Squamous (<= Few); WBC,URINE 0-3 /HPF (0-3)
[2022-07-19 15:45] LABS: THYROID STIMULATING HORMONE 0.72 uIU/mL (0.34-5.60)
[2022-07-19 15:46] LABS: PSA TOTAL 0.594 ng/mL (0.000-2.000)
[2022-07-19 15:47] LABS: FREE T3 3.08 pg/mL (2.5-3.9); FREE T4 (FREE THYROXINE) 0.68 ng/dL (0.58-1.64)
[2022-07-19 20:38] LABS: ESTIMATED AVERAGE GLUCOSE 103 mg/dL (70-100); HEMOGLOBIN A1c% 5.2 % (4.27-6.07)
== END 2022-07-19 09:37 | disposition home or self-care (01) ==
LOC: LAB.S 09:36
PROVIDERS: ATTEND Family Medicine
DX: E78.5 Hyperlipidemia, unspecified (principal); R53.83 Other fatigue; E55.9 Vitamin D deficiency, unspecified; R73.09 Other abnormal glucose; M60.89 Other myositis, multiple sites; R39.9 Unspecified symptoms and signs involving the genitourinary system
CPT/HCPCS: 36415; 80053; 80061; 81001; 82626; 82728; 83036; 83090; 83721; 84153; 84439; 84443; 84480; 84481; 85025; 86141

== ENCOUNTER 2023-08-18 07:21 | Outpatient (CLI) | payer MEDICAID ==
[2023-08-18 15:07] LABS: BASOPHILS % (AUTO) 0.4 %; EOSINOPHILS # (AUTO) 0.3 10^3/uL (0.0-0.7); EOSINOPHILS % (AUTO) 2.7 %; HCT - HEMATOCRIT 45.3 % (42.0-52.0); HGB - HEMOGLOBIN 14.9 g/dL (14.0-18.0); LYMPHOCYTES # (AUTO) 2.3 10^3/uL (1.5-3.5); LYMPHOCYTES % (AUTO) 22.2 %; MEAN CORPUSCULAR HEMOGLOBIN 30.5 pg (27.0-31.0); MEAN CORPUSCULAR HGB CONC 32.9 g/dL (32.0-36.0); MEAN CORPUSCULAR VOLUME 92.6 fL (80.0-94.0); MONOCYTES # (AUTO) 1.4 10^3/uL (0.0-1.0); MONOCYTES % (AUTO) 13.8 %; NEUTROPHILS # (AUTO) 6.2 10^3/uL (1.5-6.6); NEUTROPHILS % (AUTO) 60.3 %; PLT - PLATELET COUNT 313 10^3/uL (130-450); RED BLOOD COUNT 4.89 10^6/uL (4.70-6.10); RED CELL DISTRIBUTION WIDTH 13.8 % (12.0-15.0); WHITE BLOOD COUNT 10.2 x10^3/uL (4.8-10.8)
[2023-08-18 15:17] LABS: BILIRUBIN,URINE NEGATIVE (NEGATIVE); GLUCOSE, URINE (UA) NEGATIVE (NEGATIVE); KETONES,URINE (UA) NEGATIVE (NEGATIVE); LEUKOCYTE ESTERASE, URINE NEGATIVE (NEGATIVE); NITRITE,URINE NEGATIVE (NEGATIVE); OCCULT BLOOD,URINE NEGATIVE (NEGATIVE); PROTEIN,URINE NEGATIVE (NEGATIVE); UROBILINOGEN,URINE 0.2 (NORMAL) E.U./dL (NORMAL)
[2023-08-18 15:21] LABS: ALBUMIN 4.6 g/dL (3.2-5.5); ALBUMIN/GLOBULIN RATIO 1.6 (1.0-2.2); BILIRUBIN,TOTAL 0.3 mg/dL (0.2-1.0); CALCIUM 9.7 mg/dL (8.5-10.3); CREATININE 0.9 mg/dL (0.6-1.3); CRP HIGH SENSITIVITY 3.4 mg/L; POTASSIUM 4.3 mmol/L (3.5-4.5); TOTAL PROTEIN 7.4 g/dL (6.4-8.9)
[2023-08-18 15:24] LABS: CLARITY,URINE CLEAR (CLEAR)
[2023-08-18 15:55] LABS: THYROID STIMULATING HORMONE 1.32 uIU/mL (0.34-5.60)
[2023-08-18 16:18] LABS: BACTERIA,URINE None Seen /HPF (None Seen); RBC,URINE None Seen /HPF (0-5); SQUAMOUS EPITHELIAL CELL,UR NONE SEEN (<= Few); WBC,URINE 0-3 /HPF (0-3)
[2023-08-19 07:09] LABS: VITAMIN D 25-HYDROXY 62.7 ng/mL (30.0-100.0)
[2023-08-24 13:11] LABS: REVERSE T3 SERUM 7.1 ng/dL (.)
== END 2023-08-18 07:22 | disposition home or self-care (01) ==
LOC: LAB.S 07:21
PROVIDERS: ATTEND Family Medicine
DX: I10 Essential (primary) hypertension (principal); R53.83 Other fatigue; E78.5 Hyperlipidemia, unspecified; E03.9 Hypothyroidism, unspecified; E55.9 Vitamin D deficiency, unspecified
CPT/HCPCS: 36415; 80053; 81001; 82306; 82626; 83090; 84439; 84443; 84480; 84481; 84482; 85025; 86141

== ENCOUNTER 2024-02-28 21:07 | Outpatient (CLI) | payer MEDICAID ==
--- NOTE | 2024-02-29 17:03 | XRAY Report ---
Hip w/Pelvis 2-3V RT HISTORY: 33 years of age, RT HIP/GROIN INJURY, RT GROIN PAIN, BULGE TECHNIQUE: Hip w/Pelvis 2-3V RT COMPARISON: None. FINDINGS/IMPRESSION: Joint spaces of bilateral hips are grossly well maintained. No acute fracture or dislocation of the r ight hip. Punctate metallic density projects over the left inferior pubic ramus, nonspecific. Reviewed by: Kala Cruz MD on 02/29/2024 5:01 PM PDT Approved by: Kala Cruz MD on 02/29/2024 5:01 PM PDT Station ID: [id number]
--- NOTE | 2024-02-29 21:02 | Ultrasound Report ---
PROCEDURE: Pelvic Limited INDICATIONS: RT HIP/GROIN INJURY, RT GROIN PAIN, BULGE TECHNIQUE: Real-time transabdominal scanning was performed of the pelvic organs, with image documentation. COMPARISON: None. FINDINGS: Partially reducible bowel and fat-containing hernia in the right groin with neck measuring 1.5 cm. Th e herniated portion measures 3.7 x 1.7 cm. IMPRESSION: Partially reducible bowel and fat-containing right inguinal hernia as above. Reviewed by: Teddy Cedeno MD on 02/29/2024 9:00 PM PDT Approved by: Teddy Cedeno MD on 02/29/2024 9:00 PM PDT Station ID: [id number]
== END 2024-02-28 21:08 | disposition home or self-care (01) ==
LOC: DI 21:07
PROVIDERS: ATTEND Family Medicine
DX: K40.90 Unilateral inguinal hernia, without obstruction or gangrene, not specified as recurrent (principal); R10.813 Right lower quadrant abdominal tenderness; S79.911A Unspecified injury of right hip, initial encounter